=== PATIENT | female | born 1985 | race Caucasian/White ===

== ENCOUNTER 2019-03-19 14:14 | Observation (INO) | payer OTHER ==
[~2019-03-19] VITALS: Ht 162 cm; Wt 78.9 kg
[~2019-03-19 14:14] MED LIST: IBUP-2070 PO
[2019-03-19 14:35] VITALS: BP 112/69
[2019-03-19] MEDS ORDERED: CALC-1038 PO (14:47)
[2019-03-19] MEDS ORDERED: PREN-217 PO (14:47)
== END 2019-03-19 16:20 | disposition home or self-care (01) ==
LOC: 4S 14:14
PROVIDERS: ADMIT Obstetrics & Gynecology; ATTEND Obstetrics & Gynecology
DX: Z34.83 Encounter for supervision of other normal pregnancy, third trimester (principal); Z3A.38 38 weeks gestation of pregnancy
CPT/HCPCS: 76811; G0378

== ENCOUNTER 2019-03-26 20:50 | Inpatient (IN) | payer OTHER ==
[~2019-03-26] VITALS: Ht 162.6 cm; Wt 79.4 kg
[~2019-03-26 20:50] MED LIST changes: +CALC-1038 PO; +PREN-217 PO
[2019-03-26] MEDS ORDERED: RINGERS SOLUTION,LACTATED 1,000 ML IV PRN (22:07)
[2019-03-26] MEDS ORDERED: OXYTOCIN 30 UNITS/LACT RINGERS 500 ML IV ONE (22:07)
[2019-03-26] MEDS ORDERED: DINOPROSTONE 10 MG VAGINAL SUPPOSITORY VG ONE ×2 (22:15→23:45)
[2019-03-26] MEDS ORDERED: METOCLOPRAMIDE HCL 5 MG/ML 2 ML VIAL IVP PRN (22:15)
[2019-03-26] MEDS ORDERED: CITRIC ACID/SODIUM CITRATE 30 ML SOLUTION UDCUP PO PRN (22:15)
[2019-03-26] MEDS: RINGERS SOLUTION,LACTATED 1,000 ML IV SCH (22:32)
[2019-03-26 22:48] LABS: BASOPHILS % (AUTO) 0.3 % (0.0-2.0); EOSINOPHILS % (AUTO) 0.4 % (1.0-6.0); HEMATOCRIT 36.4 % (36-46); HEMOGLOBIN 12.5 g/dL (12.0-16.0); LYMPHOCYTES # (AUTO) 2.5 K/uL (1.0-4.8); LYMPHOCYTES % (AUTO) 30.7 % (22.0-44.0); MEAN CORPUSCULAR HEMOGLOBIN 31.1 pg (26.0-34.0); MEAN CORPUSCULAR HGB CONC 34.2 G/dL (31.0-37.0); MEAN CORPUSCULAR VOLUME 91 fL (80-100); MONOCYTES # (AUTO) 0.8 K/uL (0.1-1.0); NEUTROPHILS # (AUTO) 4.7 K/uL (1.8-7.7); NEUTROPHILS % (AUTO) 58.6 % (40.0-70.0); PLATELET COUNT (AUTO)-OB 200 K/uL (150-450); RED CELL DISTRIBUTION WIDTH 13.8 % (11.5-14.5)
[2019-03-26 23:58] VITALS: BP 118/81
[2019-03-27] MEDS ORDERED: FentaNYL CITRATE-PF 100 MCG/2 ML VIAL IVP PRN (02:15)
[2019-03-27] MEDS ORDERED: RINGERS SOLUTION,LACTATED 1,000 ML IV ONE (06:54)
[2019-03-27] MEDS: RINGERS SOLUTION,LACTATED 1,000 ML IV SCH ×3 (06:58→16:06)
[2019-03-27] MEDS ORDERED: OXYGEN THERAPY IH SCH ×2 (08:00→13:45)
[2019-03-27] MEDS ORDERED: -PHARMACY NOTE- MISC ONE (10:15)
[2019-03-27] MEDS ORDERED: MINERAL OIL 30 ML UDCUP VG ONE (13:00)
[2019-03-27] MEDS ORDERED: RINGERS SOLUTION,LACTATED 1,000 ML IV SCH (13:35)
[2019-03-27] MEDS ORDERED: RINGERS SOLUTION,LACTATED 1,000 ML IV PRN (13:35)
[2019-03-27] MEDS ORDERED: OXYTOCIN 30 UNITS/LACT RINGERS 500 ML IV PRN (13:40)
[2019-03-27] MEDS ORDERED: CITRIC ACID/SODIUM CITRATE 30 ML SOLUTION UDCUP PO PRN (13:45)
[2019-03-27] MEDS ORDERED: METOCLOPRAMIDE HCL 5 MG/ML 2 ML VIAL IVP PRN (13:45)
[2019-03-27] MEDS ORDERED: OXYTOCIN 30 UNITS/LACT RINGERS 500 ML IV ONE ×2 (13:46→17:52)
[2019-03-27] MEDS ORDERED: TERBUTALINE SULFATE 1 MG/ML VIAL SQ PRN (14:00)
[2019-03-27] MEDS ORDERED: ROPIVACAINE HCL/PF 0.2% 100 ML ED ONE (15:42)
[2019-03-27] MEDS ORDERED: ROPIVACAINE HCL/PF 0.2% 100 ML ED PRN (16:00)
[2019-03-27] MEDS ORDERED: DiphenhydrAMINE HCL 50 MG/ML VIAL IVP PRN (16:00)
[2019-03-27] MEDS ORDERED: ONDANSETRON HCL 4 MG/2 ML VIAL IVP PRN (16:00)
[2019-03-27] MEDS ORDERED: METHYLERGONOVINE MALEATE 0.2 MG/ML VIAL IM ONE (17:40)
[2019-03-27] MEDS ORDERED: GLYCERIN/WITCH HAZEL LEAF 40 PADS JAR TP PRN (18:00)
[2019-03-27] MEDS ORDERED: BENZOCAINE 20%/MENTHOL 56 GM SPRAY CANISTER TP PRN (18:00)
[2019-03-27] MEDS ORDERED: LIDOCAINE/PF 1% 30 ML VIAL INJ PRN (18:00)
[2019-03-27] MEDS ORDERED: OxyCODONE HCL/ACETAMINOPHEN 5-325 MG TABLET PO PRN ×2 (18:00)
[2019-03-27] MEDS ORDERED: LANOLIN 7 GM OINTMENT TP PRN (18:00)
[2019-03-27] MEDS: IBUPROFEN 800 MG TABLET PO PRN (21:15)
[2019-03-27] MEDS: MAGNESIUM HYDROXIDE SUSPENSION 30 ML UDCUP PO PRN (21:15)
[2019-03-28 05:56] LABS: BASOPHILS % (AUTO) 0.5 % (0.0-2.0); EOSINOPHILS % (AUTO) 0.2 % (1.0-6.0); HEMATOCRIT 36.4 % (36-46); HEMOGLOBIN 12.3 g/dL (12.0-16.0); LYMPHOCYTES # (AUTO) 2.8 K/uL (1.0-4.8); LYMPHOCYTES % (AUTO) 21.7 % (22.0-44.0); MEAN CORPUSCULAR HEMOGLOBIN 30.8 pg (26.0-34.0); MEAN CORPUSCULAR HGB CONC 33.9 G/dL (31.0-37.0); MEAN CORPUSCULAR VOLUME 91 fL (80-100); MONOCYTES # (AUTO) 0.9 K/uL (0.1-1.0); MONOCYTES % (AUTO) 6.8 % (2.0-9.0); NEUTROPHILS % (AUTO) 70.8 % (40.0-70.0); PLATELET COUNT (AUTO)-OB 174 K/uL (150-450); RED BLOOD CELL COUNT(AUTO) 3.99 MIL/uL (4.00-5.20)
[2019-03-28] MEDS: IBUPROFEN 800 MG TABLET PO PRN (07:36)
[2019-03-28] MEDS ORDERED: IBUP-2071 PO (10:12)
[2019-03-28] MEDS ORDERED: DOCU-275 PO (10:14)
[2019-03-28] MEDS: MAGNESIUM HYDROXIDE SUSPENSION 30 ML UDCUP PO PRN (14:04)
== END 2019-03-28 18:15 | disposition home or self-care (01) | DRG 807 ==
LOC: OBSVTOIN 20:50 → 4S 20:50
PROVIDERS: ADMIT Obstetrics & Gynecology; ATTEND Obstetrics & Gynecology
PROC: 10E0XZZ Delivery of Products of Conception, External Approach (ICD-10-PCS; principal; 2019-03-27)
PROC: 3E0R3BZ Introduction of Anesthetic Agent into Spinal Canal, Percutaneous Approach (ICD-10-PCS; 2019-03-27)
PROC: 00HU33Z Insertion of Infusion Device into Spinal Canal, Percutaneous Approach (ICD-10-PCS; 2019-03-27)
DX: O75.89 Other specified complications of labor and delivery (principal); Z37.0 Single live birth; Z3A.39 39 weeks gestation of pregnancy
CPT/HCPCS: 86850; 86900; 86901; J2210; J2590; J2795; J7120